=== PATIENT | male | born 1955 | race Caucasian/White ===

== ENCOUNTER 2025-07-08 16:06 | Emergency (ER) | payer MEDICARE, BC, SELFPAY ==
[2025-07-08] VITALS (8 sets, daily range): BP systolic 183–199; BP diastolic 92–100; PULSE 52–72; RESP 16; TEMP 37.2; O2SAT 93–100; BMI 23.1
--- NOTE | 2025-07-08 17:32 | ED.NEUROSD ---
HPI - Neuro Symptoms/Deficit General Chief Complaint: Neuro Symptoms/Deficit Stated Complaint: Double vision, slight headache x4days Time Seen by Provider: 07/08/25 16:38 Source: patient Mode of arrival: Ambulatory History of Present Illness HPI Narrative: 70-year-old male patient, otherwise healthy, who has had double vision since Monday morning, 4 days ago when he looks down. No other symptoms. He has a mild headache on the right temporal area but no dizziness, vertigo, weakness or numbness. He said the night before he had gone on a vigorous bike ride but had no lightheadedness, chills or nausea. He has not had these symptoms before. On Anticoagulants: No Related Data Allergies Allergy/AdvReac Type Severity Reaction Status Date / Time No Known Drug Allergies Allergy Verified 07/08/25 16:17 Review of Systems Review of Systems ROS Unobtainable: All systems reviewed & are unremarkable except as noted in HPI and below Eyes Eyes: Reports as per HPI Neurologic Neurologic: Reports as per HPI Hematologic/Lymphatic On Anticoagulants: No Patient History Social History Smoking Status: Never smoker Smoking Status: Never smoker Exam Narrative Exam Narrative: General: Alert and conversant. No distress. Appears well nourished and well hydrated Craniofacial: No evidence of trauma. Nontender and no swelling. Eyes: PERRLA EOMI conjunctiva clear. No obvious asymmetry of eye movement. Perhaps slight lagging of the left eye in the inferior range of motion. Patient reports diplopia when looking down Lungs: Nonlabored respiration. Neuro: Diplopia as reported above under eye exam. Otherwise Alert and oriented. Cranial nerves, motor, sensory and cerebellar all grossly intact. No focal deficit Skin: Warm and normal color. No rashes Psychological: Normal affect and interaction. No evidence of delusion or psychosis. Normal mood. Initial Vital Signs Initial Vital Signs: Vital Signs Temperature 98.9 F 07/08/25 16:17 Pulse Rate 69 07/08/25 16:17 Respiratory Rate 16 07/08/25 16:17 Blood Pressure 190/92 H 07/08/25 16:17 Pulse Oximetry 100 07/08/25 16:17 Oxygen Delivery Method Room Air 07/08/25 16:17 Course Course Course Narrative: 18:00 I discussed the patient's symptoms and care with Mell Zavala, neurology at [facility]. She requested that we obtain CT without contrast of the head and CTA head and neck. If these studies are negative, she advised that the patient follow-up as an outpatient with primary care with referral to Neurology and possibly ophthalmology. Orders Ordered: ED Orders 07/08/25 17:41 CBC Auto Diff [Complete Blood Count AUTO DIFF] Stat CMP [Comprehensive Metabolic Panel] Stat 07/08/25 18:02 CT angio head and neck Stat CT head/brain wo con Stat Vital Signs Vital signs: Vital Signs - 8 hr 07/08/25 16:17 07/08/25 17:26 07/08/25 17:26 Temperature 98.9 F Pulse Rate 69 68 Respiratory Rate 16 Blood Pressure 190/92 H 191/100 H Pulse Oximetry 100 100 Oxygen Delivery Method Room Air 07/08/25 17:30 07/08/25 18:00 07/08/25 18:00 Temperature Pulse Rate 58 L 56 L Respiratory Rate Blood Pressure 183/93 H Pulse Oximetry 100 100 Oxygen Delivery Method 07/08/25 18:52 07/08/25 19:07 07/08/25 19:07 Temperature Pulse Rate 72 57 L Respiratory Rate Blood Pressure 194/95 H Pulse Oximetry 93 100 Oxygen Delivery Method Room Air 07/08/25 19:30 07/08/25 19:30 07/08/25 20:00 Temperature Pulse Rate 55 L 52 L Respiratory Rate Blood Pressure 199/94 H Pulse Oximetry 100 100 Oxygen Delivery Method MDM - Neuro Symptoms/Deficit Differential Diagnosis Differential diagnosis: Likely other (Cranial nerve palsy of eye movement. Muscle disorder of eye movement) Lab Data Attestation: I reviewed the patient's lab results. Lab results narrative: CBC and CMP unremarkable 07/08/25 17:41 07/08/25 17:41 Labs: Lab Results 07/08/25 Range/Units 17:41 WBC 5.7 (4.5-11.0) X10^3/uL RBC 4.90 (4.5-5.9) X10^6/uL Hgb 15.4 (13.5-17.5) g/dL Hct 43.5 (41-53) % MCV 88.6 (80-100) fL MCH 31.4 (26-34) PG MCHC 35.4 (30-36) % RDW 12.3 (11.6-14.8) % Plt Count 238 (150-400) X10^3/uL Neut % (Auto) 57.4 (50-75) % Lymph % (Auto) 29.7 (25-40) % [place] % (Auto) 10.2 (3-14) % Eos % (Auto) 1.7 L (2-4) % Baso % (Auto) 1.0 (0-2) % Neut # (Auto) 3300 (4596-8806) /uL Lymph # (Auto) 1700 (6534-4221) /uL [place] # (Auto) 600 (0-900) /uL Eos # (Auto) 100 (0-450) /uL Baso # (Auto) 100 (0-100) /uL Sodium 139 (137-145) mmol/L Potassium 3.7 (3.4-5.1) mmol/L Chloride 105 (98-107) mmol/L Carbon Dioxide 23 (22-32) mmol/L BUN 18 (9-20) mg/dL Creatinine 0.90 (0.66-1.25) mg/dL Estimated GFR > 60 (>60) mL/min BUN/Creatinine Ratio 20.0 (6-22) Glucose 95 (70-99) mg/dL Calcium 9.5 (8.4-10.2) mg/dL Total Bilirubin 0.6 (0.2-1.3) mg/dL AST 30 (17-59) IU/L ALT 21 (<50) IU/L Alkaline Phosphatase 70 (38-126) U/L Total Protein 8.3 H (6.3-8.2) g/dL Albumin 4.9 (3.5-5.0) g/dL Globulin 3.4 (1.7-4.1) g/dL Albumin/Globulin Ratio 1.4 (1.0-2.8) Imaging Data CT scan - head: Radiologist's Impression: No acute intracranial pathology. CTA - brain/neck: Radiologist's Impression: IMPRESSION: No significant intracranial arterial abnormality is seen. No significant abnormality is seen within the arteries of the neck. Any quantitative measurements of stenosis were performed using NASCET criteria. MDM Narrative Medical decision making narrative: Patient has diplopia looking vertically down. This appears to be a nerve palsy or possible muscle abnormality. Nonemergent given the negative scans. Patient will monitor symptoms and follow-up with primary care for referral to Neurology and/or Ophthalmology. Patient reports he is traveling and will follow up with an fur tailor with whom he has an appointment in [place] in a few days. He is to return to the ER if worse. He was advised that he probably needs neurology consult to further evaluate this visual problem. Discharge Plan Departure Patient Disposition: Home Clinical Impression: Diplopia Instructions: DI for Double Vision Activity Restrictions/Additional Instructions: Plan: Monitor symptoms. This has probably caused by a nerve to the optic muscles. Establish primary care and follow-up as soon as possible to readdress symptoms. May need referral to Neurology and possibly ophthalmology. May also follow up with an eye doctor if you can not get into primary care within the next few days. Return to the ER if worse. Stand Alone Forms: Patient Portal/API
--- NOTE | 2025-07-08 18:02 | DI.CT.S_ITS ---
PROCEDURE: CT ANGIO HEAD AND NECK INDICATIONS: Double vision. Rule out CVA TECHNIQUE: After the administration of intravenous contrast, 1 mm thick sections acquired from the aortic arch through the [place]. 3-dimensional lekssed-gxvofmveh-pcyvrqzwmo (MIP) and/or volume rendering reformats were acquired of the central intracranial vasculature and neck separately. For radiation dose reduction, the following was used: automated exposure control, adjustment of mA and/or kV according to patient size. COMPARISON: None. FINDINGS: Image quality: Diagnostic. Cerebral CT Angiogram: Internal carotid arteries: No acute findings. Intracranial ICA are patent with no significant stenosis. No occlusion. No aneurysm. Anterior cerebral arteries: Unremarkable. No significant stenosis. No occlusion. No aneurysm. Middle cerebral arteries: Unremarkable. No significant stenosis. No occlusion. No aneurysm. Posterior cerebral arteries: Unremarkable. No significant stenosis. No occlusion. No aneurysm. Basilar artery: Unremarkable. No significant stenosis. No occlusion. No aneurysm. Vertebral arteries: Unremarkable as visualized. Dural venous sinuses: Unremarkable given phase of enhancement. Other: Arterial phase appearance of the brain parenchyma is unremarkable. Neck CT Angiogram: Internal carotid arteries: Unremarkable. No significant stenosis. No dissection or occlusion. Common carotid arteries: Unremarkable. No significant stenosis. No dissection or occlusion. External carotid arteries: Unremarkable. No occlusion. Vertebral arteries: Unremarkable. No significant stenosis. No dissection or occlusion. Aortic Arch and Mediastinum: Partially visualized aortic arch unremarkable without evidence of aneurysm. Origins of the great vessels unremarkable. Other: Arterial phase soft tissues of the neck and chest are unremarkable. Size mild spinal canal stenosis at C5-6 and C6-7 due to degenerate disc osteophyte complexes. IMPRESSION: No significant intracranial arterial abnormality is seen. No significant abnormality is seen within the arteries of the neck. Any quantitative measurements of stenosis were performed using NASCET criteria. Dictated by: Cesar Dc M.D. on 07/08/2025 at 19:13 Approved by: Cesar Dc M.D. on 07/08/2025 at 19:14
--- NOTE | 2025-07-08 18:02 | DI.CT.S_ITS ---
PROCEDURE: CT HEAD/BRAIN WO CON INDICATIONS: Double vision TECHNIQUE: Noncontrast 4.5 mm thick angled axial sections acquired from the foramen magnum to the vertex, with coronal and sagittal reformats. For radiation dose reduction, the following was used: automated exposure control, adjustment of mA and/or kV according to patient size. COMPARISON: None. FINDINGS: Image quality: Diagnostic. CSF spaces: Basal cisterns are patent. No extra-axial fluid collections. Ventricles are normal in size and shape. Brain: No midline shift. No intracranial mass effect or hemorrhage. Rashid- white matter interface is normal. Skull and face: Calvarium and visualized facial bones are intact, without suspicious lesions. Sinuses: Visualized sinuses and mastoids are clear. IMPRESSION: No acute intracranial pathology. Dictated by: Cesar Dc M.D. on 07/08/2025 at 19:14 Approved by: Cesar Dc M.D. on 07/08/2025 at 19:15
[2025-07-08 18:08] LABS: Add Manual Diff / Slide Review NO; Hematocrit 43.5 % (41-53); Hemoglobin 15.4 g/dL (13.5-17.5); Lymphocytes Absolute Auto 1700 /uL (1100-4500); Mean Corpuscular HGB Conc 35.4 % (30-36); Mean Corpuscular Hemoglobin 31.4 PG (26-34); Mean Corpuscular Volume 88.6 fL (80-100); Platelet Count 238 X10^3/uL (150-400)
[2025-07-08 18:14] LABS: Alanine Aminotransferase 21 IU/L (<50); Albumin 4.9 g/dL (3.5-5.0); Albumin Globulin Ratio 1.4 (1.0-2.8); Alkaline Phosphatase 70 U/L (38-126); Blood Urea Nitrogen 18 mg/dL (9-20); Calcium 9.5 mg/dL (8.4-10.2); Carbon Dioxide 23 mmol/L (22-32); Chloride 105 mmol/L (98-107); Estimated Glomerular Filt Rate > 60 mL/min (>60); Globulin 3.4 g/dL (1.7-4.1); Glucose 95 mg/dL (70-99); HEMOLYSIS 19 (0-50); Potassium 3.7 mmol/L (3.4-5.1); Sodium 139 mmol/L (137-145); Total Protein 8.3 g/dL (6.3-8.2)
== END 2025-07-08 20:10 | disposition home or self-care (01) ==
PROVIDERS: Emergency Provider Emergency Medicine
DX: H53.2 Diplopia (principal); R51.9 Headache, unspecified
CPT/HCPCS: 70450; 70496; 70498; 80053; 85025; 99284; Q9967